=== PATIENT | male | born 1970 | race Caucasian/White ===

== ENCOUNTER 2017-06-17 21:20 | Inpatient (IN) | payer MEDICARE, OTHER ==
[~2017-06-17] VITALS: Ht 165.1 cm; Wt 57.7 kg
[~2017-06-17 21:20] MED LIST: MIRT7.5T10 PO; WELL150T PO
[2017-06-17 21:23] VITALS: BP 118/70; PULSE 99; RESP 16; TEMP 98.3; O2SAT 95
[2017-06-17 22:31] LABS: AUTOMATED NEUTROPHIL # 1.9 TH/MM3 (1.8-7.7); EOSINOPHIL # 0.2 TH/MM3 (0-0.4); EOSINOPHIL % 3.2 % (0.0-4.0); HEMATOCRIT 47.1 % (39.0-51.0); HEMOGLOBIN 16.7 GM/DL (13.0-17.0); LYMPH % 43.4 % (9.0-44.0); LYMPHOCYTE # 2.7 TH/MM3 (1.0-4.8); MEAN CELL VOLUME 91.4 FL (80.0-100.0); MEAN CORPUSCULAR HEMOGLOBIN 32.4 PG (27.0-34.0); MEAN CORPUSCULAR HGB CONC 35.5 % (32.0-36.0); MEAN PLATELET VOLUME 9.4 FL (7.0-11.0); MONO % 23.2 % (0.0-8.0); MONOCYTE # 1.4 TH/MM3 (0-0.9); NEUT % 30.2 % (16.0-70.0); PLATELET COUNT 209 TH/MM3 (150-450); RED BLOOD COUNT 5.15 MIL/MM3 (4.50-5.90); RED CELL DISTRIBUTION WIDTH 13.9 % (11.6-17.2); WHITE BLOOD COUNT 6.2 TH/MM3 (4.0-11.0)
[2017-06-17 22:47] LABS: ALBUMIN 3.7 GM/DL (3.4-5.0); ALT (GPT) 60 U/L (12-78); AST (GOT) 60 U/L (15-37); BICARBONATE 29.8 MEQ/L (21.0-32.0); BLOOD UREA NITROGEN 10 MG/DL (7-18); CALCIUM 8.5 MG/DL (8.5-10.1); CHLORIDE 97 MEQ/L (98-107); CREATININE 0.82 MG/DL (0.60-1.30); GLOMERULAR FILTRATION RATE 100 ML/MIN (>89); GLUCOSE,RANDOM 91 MG/DL (74-106); SODIUM (NA) 137 MEQ/L (136-145)
[2017-06-17 22:56] LABS: ALKALINE PHOSPHATASE 88 U/L (45-117); TOTAL BILIRUBIN ADULT 0.3 MG/DL (0.2-1.0); TOTAL PROTEIN 8.8 GM/DL (6.4-8.2)
[2017-06-17 22:58] LABS: BASOPHILS 1 % (0-2); MONOCYTES 15 % (0-8); NEUTROPHIL # MANUAL DIFF 2.7 TH/MM3 (1.8-7.7); POLYS (SEG NEUTROPHILS) 44 % (16-70)
[2017-06-17 22:59] LABS: LYMPHOCYTES 36 % (9-44)
[2017-06-17 23:01] LABS: TOXIC VACUOLATION PRESENT (NONE SEEN)
[2017-06-18] MEDS ORDERED: BUPR150XL PO (00:50)
[2017-06-18] MEDS ORDERED: POTASSIUM CHLORIDE 20 MEQ CONTROLLED RELEASE TAB PO ONE (01:00)
--- NOTE | 2017-06-18 01:01 | PD ---
HPI Chief Complaint: Psychiatric Symptoms Time Seen by Provider: 00:50 Travel History International Travel<30 days: No Contact w/Intl Traveler<30days: No Traveled to known affect area: No History of Present Illness HPI 46-year-old white male presents emergency Department on a voluntary basis for psychological evaluation. Patient has a history of bipolar, and anxiety. He states that he's been disabled for some time. He had moved from [place] to [place] a few years ago. He is followed by [facility]. He alleges that he stopped paying his heart be of his Medicare has not been able to afford his medications. He has been out of his medications for several months. He is becoming increasingly depressed and having suicidal thoughts. He states that he has contemplated having himself. Patient does admit to drinking alcohol. He denies any other drugs. He denies any medical complaints otherwise. No homicidal ideation. No toxic ingestion. PFSH Past Medical History ADHD: Yes Asthma: No Blood Disorders: No Bipolar Disorder: Yes Anxiety: Yes Depression: Yes Heart Rhythm Problems: No Cancer: No Cardiovascular Problems: No High Cholesterol: No Chemotherapy: No Chest Pain: No Congestive Heart Failure: No COPD: No Diabetes: No Diminished Hearing: No Endocrine: No Genitourinary: No Hepatitis: Yes Hypertension: Yes Immune Disorder: No Inguinal Hernia: Yes (HAD REPAIR OF BILATERAL INGUINAL HERNIAS) Insomnia: Yes Musculoskeletal: Yes (SCIATICA, CHRONIC BACK PAIN) Neurologic: No Psychiatric: Yes Reproductive: No Respiratory: No Integumentary: Yes (HAS AN ABSCESS LEFT WRIST, RED, SWOLLEN, HARD, NO DRAINAGE) Migraines: Yes Radiation Therapy: No Seizures: No Sleep Apnea: No Tetanus Vaccination: < 5 Years Influenza Vaccination: No Past Surgical History Abdominal Surgery: Yes (INGUINAL HERNIA REPAIR BILAT) Social History Alcohol Use: Yes Tobacco Use: Yes (1/2 PPD) Substance Use: No (DENIES) Allergies-Medications (Allergen,Severity, Reaction): Coded Allergies: haloperidol (Unverified Adverse Reaction, Severe, Shortness of Breath, ) Reported Meds & Prescriptions Reported Meds & Active Scripts Active Reported Wellbutrin Xl 24 HR (Bupropion HCl) 150 Mg Tab 150 Mg PO DAILY Review of Systems Except as stated in HPI: all other systems reviewed are Neg Psychiatric: Positive: Anxiety, Depression, Suicidal Ideations, Mood Disorder, No: Disorder of Thought, Substance Abuse, Homicidal Ideation Physical Exam Narrative GENERAL: Well-nourished, well-developed patient. Smells of EtOH. SKIN: Warm and dry. HEAD: Normocephalic and atraumatic. EYES: No scleral icterus. No injection or drainage. ENT: No nasal drainage noted. Mucous membranes pink. Airway patent. NECK: Supple, trachea midline. Moves head freely without obvious discomfort. CARDIOVASCULAR: Regular rate and rhythm without murmurs, gallops, or rubs. RESPIRATORY: Breath sounds equal bilaterally. No accessory muscle use. GASTROINTESTINAL: Abdomen soft, non-tender, nondistended. EXTREMITIES: No cyanosis or edema. BACK: Nontender without obvious deformity. No CVA tenderness. NEURO: Patient is alert and oriented. no sensorimotor deficits. Nonfocal. Normal speech. PSYCH: No delusions. No auditory or visual hallucinations. Data Data Last Documented VS Vital Signs Date Time Temp Pulse Resp B/P (MAP) Pulse Ox O2 Delivery O2 Flow Rate FiO2 06/18/17 00:50 18 06/17/17 21:23 98.3 99 118/70 (86) 95 Orders Orders Complete Blood Count With Diff (06/17/17 21:26) Comprehensive Metabolic Panel (06/17/17 21:26) Thyroid Stimulating Hormone (06/17/17 21:26) Psych Screen (06/17/17 21:26) Drug Screen, Random Urine (06/17/17 21:26) Alcohol (Ethanol) (06/17/17 21:26) Potassium Chloride (Kcl) (06/18/17 01:00) Labs Laboratory Tests Test 06/17/17 22:00 White Blood Count 6.2 TH/MM3 Red Blood Count 5.15 MIL/MM3 Hemoglobin 16.7 GM/DL Hematocrit 47.1 % Mean Corpuscular Volume 91.4 FL Mean Corpuscular Hemoglobin 32.4 PG Mean Corpuscular Hemoglobin Concent 35.5 % Red Cell Distribution Width 13.9 % Platelet Count 209 TH/MM3 Mean Platelet Volume 9.4 FL Neutrophils (%) (Auto) 30.2 % Lymphocytes (%) (Auto) 43.4 % Monocytes (%) (Auto) 23.2 % Eosinophils (%) (Auto) 3.2 % Basophils (%) (Auto) 0.0 % Neutrophils # (Auto) 1.9 TH/MM3 Lymphocytes # (Auto) 2.7 TH/MM3 Monocytes # (Auto) 1.4 TH/MM3 Eosinophils # (Auto) 0.2 TH/MM3 Basophils # (Auto) 0.0 TH/MM3 CBC Comment AUTO DIFF Differential Total Cells Counted 100 Neutrophils % (Manual) 44 % Lymphocytes % 36 % Monocytes % 15 % Eosinophils % 4 % Basophils % 1 % Neutrophils # (Manual) 2.7 TH/MM3 Differential Comment FINAL DIFF MANUAL Atypical Lymphocytes % Toxic Vacuolation PRESENT Platelet Estimate NORMAL Platelet Morphology Comment NORMAL Red Cell Morphology Comment NORMAL Blood Urea Nitrogen 10 MG/DL Creatinine 0.82 MG/DL Random Glucose 91 MG/DL Total Protein 8.8 GM/DL Albumin 3.7 GM/DL Calcium Level 8.5 MG/DL Alkaline Phosphatase 88 U/L Aspartate Amino Transf (AST/SGOT) 60 U/L Alanine Aminotransferase (ALT/SGPT) 60 U/L Total Bilirubin 0.3 MG/DL Sodium Level 137 MEQ/L Potassium Level 3.2 MEQ/L Chloride Level 97 MEQ/L Carbon Dioxide Level 29.8 MEQ/L Anion Gap 10 MEQ/L Estimat Glomerular Filtration Rate 100 ML/MIN Thyroid Stimulating Hormone 3rd Gen 0.499 uIU/ML Urine Opiates Screen NEG Urine Barbiturates Screen NEG Urine Amphetamines Screen NEG Urine Benzodiazepines Screen NEG Urine Cocaine Screen NEG Urine Cannabinoids Screen NEG Ethyl Alcohol Level 160 MG/DL MDM Medical Decision Making Medical Screen Exam Complete: Yes Emergency Medical Condition: Yes Medical Record Reviewed: Yes Interpretation(s) Laboratory Tests Test 06/17/17 22:00 White Blood Count 6.2 TH/MM3 Red Blood Count 5.15 MIL/MM3 Hemoglobin 16.7 GM/DL Hematocrit 47.1 % Mean Corpuscular Volume 91.4 FL Mean Corpuscular Hemoglobin 32.4 PG Mean Corpuscular Hemoglobin Concent 35.5 % Red Cell Distribution Width 13.9 % Platelet Count 209 TH/MM3 Mean Platelet Volume 9.4 FL Neutrophils (%) (Auto) 30.2 % Lymphocytes (%) (Auto) 43.4 % Monocytes (%) (Auto) 23.2 % Eosinophils (%) (Auto) 3.2 % Basophils (%) (Auto) 0.0 % Neutrophils # (Auto) 1.9 TH/MM3 Lymphocytes # (Auto) 2.7 TH/MM3 Monocytes # (Auto) 1.4 TH/MM3 Eosinophils # (Auto) 0.2 TH/MM3 Basophils # (Auto) 0.0 TH/MM3 CBC Comment AUTO DIFF Differential Total Cells Counted 100 Neutrophils % (Manual) 44 % Lymphocytes % 36 % Monocytes % 15 % Eosinophils % 4 % Basophils % 1 % Neutrophils # (Manual) 2.7 TH/MM3 Differential Comment FINAL DIFF MANUAL Atypical Lymphocytes % Toxic Vacuolation PRESENT Platelet Estimate NORMAL Platelet Morphology Comment NORMAL Red Cell Morphology Comment NORMAL Blood Urea Nitrogen 10 MG/DL Creatinine 0.82 MG/DL Random Glucose 91 MG/DL Total Protein 8.8 GM/DL Albumin 3.7 GM/DL Calcium Level 8.5 MG/DL Alkaline Phosphatase 88 U/L Aspartate Amino Transf (AST/SGOT) 60 U/L Alanine Aminotransferase (ALT/SGPT) 60 U/L Total Bilirubin 0.3 MG/DL Sodium Level 137 MEQ/L Potassium Level 3.2 MEQ/L Chloride Level 97 MEQ/L Carbon Dioxide Level 29.8 MEQ/L Anion Gap 10 MEQ/L Estimat Glomerular Filtration Rate 100 ML/MIN Thyroid Stimulating Hormone 3rd Gen 0.499 uIU/ML Urine Opiates Screen NEG Urine Barbiturates Screen NEG Urine Amphetamines Screen NEG Urine Benzodiazepines Screen NEG Urine Cocaine Screen NEG Urine Cannabinoids Screen NEG Ethyl Alcohol Level 160 MG/DL Differential Diagnosis MDM: High Differential diagnoses: Schizophrenia, schizoaffective disorder, bipolar, anxiety, depression, adjustment reaction, mood disorder NOS, ODD, depressive disorder NOS, dementia, dementia with agitation, psychosis NOS, substance induced mood disorder, DMDD, Asperger syndrome, infection,electrolyte abnormality, malingering. Narrative Course Mental health screening discussed with the patient. Psychiatric screen ordered. The patient is been medically cleared. This is medical clearance for psychiatric admission, alcohol intoxication Diagnosis Primary Impression: Medical clearance for psychiatric admission Additional Impression: Alcohol intoxication Qualified Codes: F10.920 - Alcohol use, unspecified with intoxication, uncomplicated Condition: Stable Braulio Magallon Jun 18, 2017 01:01
[2017-06-18] MEDS ORDERED: SERO25TA PO (02:16)
[2017-06-18] MEDS ORDERED: CLON0.2T PO (02:16)
[2017-06-18 06:30] VITALS: BP 120/58; PULSE 78; RESP 18; O2SAT 100
--- NOTE | 2017-06-18 13:34 | PD ---
History of Present Illness Chief Complaint: Major depressive disorder Time Seen by Provider: 13:10 Travel History International Travel<30 Days: No Contact w/Intl Traveler<30days: No Known affected area: No Legal Status Legal Status: Voluntary History of Present Illness: Mr. Guevara is a 46 y/o , single, male who presents voluntarily for depression and suicidal ideation. Patient endorses suicide by hanging and reports multiple previous attempts. He has been to this facility multiple times in the past. He has been off of his medications "for several months now" due to "losing my Medicare B'. He additionally reports that he hears command voices which are derogatory in nature, and "tell me to just get it over with". Reviewed the electronic medical record and discussed patient with medical staff. Interviewed patient in room in ED main. He is neatly groomed with multiple tattoos. He is alert & oriented X4. His speech is clear and his thoughts are organized. His mood is sad/anxious and congruent with his affect. He reports that he has been experiencing insomnia, anhedonia, and auditory command hallucinations "on and off, but more frequently the past few weeks" . He denies HI, visual hallucinations and does not appear to be delusional at this time. Patient admits to drinking alcohol, denies substance abuse, reports tobacco use 1 PPD. Mr Guevara's last visit to this facility was in 2013. He states that he moved back to [place], but returned in February due to his mother being having ESRD. He reports that his last suicide attempt by hanging resulted in a hospital stay in [place]. He states that he lives alone in an apartment, and is on SSI due to depression, bipolar disorder, and anxiety. He reports that he was taking Wellbutrin 150 mg bid, clonidine 2 mg TID, and Seroquel 25 mg HS. Denies having friends or family in the area, other than his mother. Mr Guevara had been receiving outpatient treatment through [facility]. He states that he was unaware that he could continue with them in spite of his loss of insurance. He will be admitted inpatient for medications stabilization. [facility] Past Medical History Narrative Medical Reviewed electronic record and labs. ADHD: Yes Asthma: No Blood Disorders: No Bipolar Disorder: Yes Anxiety: Yes Depression: Yes Heart Rhythm Problems: No Cancer: No Cardiovascular Problems: No High Cholesterol: No Chemotherapy: No Chest Pain: No Congestive Heart Failure: No COPD: No Diabetes: No Diminished Hearing: No Endocrine: No Genitourinary: No Hepatitis: Yes Hypertension: Yes Immune Disorder: No Inguinal Hernia: Yes (HAD REPAIR OF BILATERAL INGUINAL HERNIAS) Insomnia: Yes Musculoskeletal: Yes (SCIATICA, CHRONIC BACK PAIN) Neurologic: No Psychiatric: Yes Reproductive: No Respiratory: No Integumentary: Yes (HAS AN ABSCESS LEFT WRIST, RED, SWOLLEN, HARD, NO DRAINAGE) Migraines: Yes Radiation Therapy: No Seizures: No Sleep Apnea: No Tetanus Vaccination: < 5 Years Influenza Vaccination: No Past Surgical History Abdominal Surgery: Yes (INGUINAL HERNIA REPAIR BILAT) Psychiatric History Psychiatric History Reported previous history of suicide attempts. History of depression, anxiety, bipolar DO, and polysubstance abuse. Hx Psychiatric Treatment: HX OF MAJOR DEPRESSION, ANXIETY, PTSD AND POLYSUBSTANCE ABUSE History of Inpatient Treatment: Yes Guns or firearms in home: No Social History Reportedly lives alone in an apartment. Hx Alcohol Use: Yes Hx Tobacco Use: Yes (/2 PPD) Hx Substance Use: Yes (HX: ALCOHOL ) Substance Use Type: Alcohol, Nicotine/Cigarettes, Cocaine Hx of Substance Use Treatment: No Family Psychiatric History Denies family history of suicide or mental illness. Allergies-Medications (Allergen,Severity, Reaction): Coded Allergies: haloperidol (Unverified Adverse Reaction, Severe, Shortness of Breath, ) Reported Meds & Prescriptions Reported Meds & Active Scripts Active Reported Clonidine (Clonidine HCl) 0.2 Mg Tab 0.2 Mg PO TID Seroquel (Quetiapine Fumarate) 25 Mg Tab 25 Mg PO HS Wellbutrin Xl 24 HR (Bupropion HCl) 150 Mg Tab 150 Mg PO DAILY Narrative Medication Reportedly was taking Wellbutrin 150 mg bid, Clonidine 2 mg TID, and Seroquel 25 mg HS. Review of Systems Other Medically cleared by ED staff. Mental Status Examination Appearance: Appropriate, Well dressed/well groomed Consciousness: Alert Orientation: x4 Motor Activity: Other (in bed) Speech: Unremarkable Language: Adequate Fund of Knowledge: Adequate Attention and Concentration: Adequate Memory: Unremarkable Mood: Sad, Anxious Affect: Sad, Anxious Thought Process & Associations: Intact Thought Content: Appropriate Hallucination Type: Auditory (reports derogotory, command auditory hallucinations) Delusion Type: None Suicidal Ideation: Yes Suicidal Plan: Yes (hanging) Suicidal Intention: No Homicidal Ideation: No Homicidal Plan: No Homicidal Intention: No Insight: Adequate Judgment: Impulsive (per patient's description) Mental Status Exam Remarks Reviewed the electronic medical record and discussed patient with medical staff. Interviewed patient in room in ED main. He is neatly groomed with multiple tattoos. He is alert & oriented X4. His speech is clear and his thoughts are organized. His mood is sad/anxious and congruent with his affect. He reports that he has been experiencing insomnia, anhedonia, and auditory command hallucinations "on and off, but more frequently the past few weeks" . He denies HI, visual hallucinations and does not appear to be delusional at this time. Patient admits to drinking alcohol, denies substance abuse, reports tobacco use 1 PPD. Mr Guevara's last visit to this facility was in 2013. He states that he moved back to [place], but returned in February due to his mother being having ESRD. He reports that his last suicide attempt by hanging resulted in a hospital stay in [place]. He states that he lives alone in an apartment, and is on SSI due to depression, bipolar disorder, and anxiety. [facility] Medical Decision Making Medical Record Reviewed: Yes Assessment/Plan Admission for medication stabilization. Request HC Surrog/Guard Advoc?: No Orders Orders Complete Blood Count With Diff (06/17/17 21:26) Comprehensive Metabolic Panel (06/17/17 21:26) Thyroid Stimulating Hormone (06/17/17 21:26) Psych Screen (06/17/17 21:26) Drug Screen, Random Urine (06/17/17 21:26) Alcohol (Ethanol) (06/17/17 21:26) Potassium Chloride (Kcl) (06/18/17 01:00) Diet Regular Basic (06/18/17 Breakfast) Results Vital Signs Date Time Temp Pulse Resp B/P (MAP) Pulse Ox O2 Delivery O2 Flow Rate FiO2 06/18/17 06:30 78 18 120/58 (78) 100 06/18/17 00:50 18 06/17/17 21:23 98.3 99 16 118/70 (86) 95 Laboratory Tests Test 06/17/17 22:00 White Blood Count 6.2 Red Blood Count 5.15 Hemoglobin 16.7 Hematocrit 47.1 Mean Corpuscular Volume 91.4 Mean Corpuscular Hemoglobin 32.4 Mean Corpuscular Hemoglobin Concent 35.5 Red Cell Distribution Width 13.9 Platelet Count 209 Mean Platelet Volume 9.4 Neutrophils (%) (Auto) 30.2 Lymphocytes (%) (Auto) 43.4 Monocytes (%) (Auto) 23.2 Eosinophils (%) (Auto) 3.2 Basophils (%) (Auto) 0.0 Neutrophils # (Auto) 1.9 Lymphocytes # (Auto) 2.7 Monocytes # (Auto) 1.4 Eosinophils # (Auto) 0.2 Basophils # (Auto) 0.0 CBC Comment AUTO DIFF Differential Total Cells Counted 100 Neutrophils % (Manual) 44 Lymphocytes % 36 Monocytes % 15 Eosinophils % 4 Basophils % 1 Neutrophils # (Manual) 2.7 Differential Comment FINAL DIFF MANUAL Atypical Lymphocytes Toxic Vacuolation PRESENT Platelet Estimate NORMAL Platelet Morphology Comment NORMAL Red Cell Morphology Comment NORMAL Blood Urea Nitrogen 10 Creatinine 0.82 Random Glucose 91 Total Protein 8.8 Albumin 3.7 Calcium Level 8.5 Alkaline Phosphatase 88 Aspartate Amino Transf (AST/SGOT) 60 Alanine Aminotransferase (ALT/SGPT) 60 Total Bilirubin 0.3 Sodium Level 137 Potassium Level 3.2 Chloride Level 97 Carbon Dioxide Level 29.8 Anion Gap 10 Estimat Glomerular Filtration Rate 100 Thyroid Stimulating Hormone 3rd Gen 0.499 Urine Opiates Screen NEG Urine Barbiturates Screen NEG Urine Amphetamines Screen NEG Urine Benzodiazepines Screen NEG Urine Cocaine Screen NEG Urine Cannabinoids Screen NEG Ethyl Alcohol Level 160 Diagnosis Primary Impression: Major depressive disorder Admitting Information Admitting Physician Requests: Admit Condition: Stable Shilpa Humphrey Jun 18, 2017 13:34
[2017-06-18] MEDS ORDERED: ALUMINUM/MAGNESIUM/SIMETH 30 ML CUP PO PRN (14:15)
[2017-06-18] MEDS ORDERED: MAGNESIUM HYDROXIDE SUSP 30 ML CUP PO PRN (14:15)
[2017-06-18 15:35] VITALS: BP_SYST 127; BP_SYST 136; BP_DIAS 65; BP_DIAS 70; PULSE 78; PULSE 87; RESP 16; RESP 17; TEMP 97.6; O2SAT 98
[2017-06-18 15:43] VITALS: BP 127/70
[2017-06-18] MEDS ORDERED: LORazepam 2 MG TAB PO PRN (16:45)
[2017-06-18] MEDS ORDERED: FLUMAZENIL 0.5 MG/5 ML VIAL IV PUSH PRN (16:45)
[2017-06-18] MEDS ORDERED: LORazepam 2 MG/ML VIAL IV PUSH PRN ×4 (16:45)
[2017-06-18 18:00] VITALS: BP 136/65; PULSE 78; RESP 16; TEMP 97.6; O2SAT 98
[2017-06-18] MEDS: NICOTINE 21 MG/24 HR PATCH T-DERMAL SCH (20:49)
[2017-06-19 06:06] VITALS: BP 99/54; PULSE 69; RESP 19; TEMP 97.5; O2SAT 99
[2017-06-19 08:26] LABS: BICARBONATE 32.4 MEQ/L (21.0-32.0); BLOOD UREA NITROGEN 13 MG/DL (7-18); CALCIUM 9.2 MG/DL (8.5-10.1); CHLORIDE 105 MEQ/L (98-107); CHOLESTEROL 164 MG/DL (120-200); GLOMERULAR FILTRATION RATE 103 ML/MIN (>89); GLUCOSE,RANDOM 92 MG/DL (74-106); SODIUM (NA) 142 MEQ/L (136-145)
[2017-06-19 08:29] LABS: CHOLESTEROL/ HDL RATIO 3.52 RATIO; HDL CHOLESTEROL 46.5 MG/DL (40.0-60.0); LDL CHOLESTEROL 104 MG/DL (0-99); TRIGLYCERIDES 68 MG/DL (42-150)
[2017-06-19] MEDS: NICOTINE 21 MG/24 HR PATCH T-DERMAL SCH (08:53)
[2017-06-19] MEDS: LORazepam 1 MG TAB PO PRN ×2 (08:53→16:02)
[2017-06-19] MEDS ORDERED: REMOVE OLD PATCH T-DERMAL SCH (09:00)
--- NOTE | 2017-06-19 11:16 | PD.PN.STU ---
Subjective Remarks This is a 46 y/o male being evaluated on the inpatient psych unit for the chief complaint of "I need my meds" The patient has a 20 year hx of major depression and sever anxiety. He has been on his current medication regimen for the past 6-7 years but lost his insurance in March and has not has his medication since then. He says that he started to feel suicidal when he ran out of his meds. He reports having panic attacks when he leaves the house and reports that he would try to kill himself by hanging himself. The patient states "If I could I would be so happy". He reports that he was living with his brother and his brother girlfriend in [facility] and both of them are active drug abusers. He moved here from [place] to be with his alcoholic mother while she deals with her stage 3 CKD. The patient reports "over 100 suicide attempts" . He has a hx of alcohol abuse and was sober for 4 years but began drinking 3 days ago because oh how depressed he felt. His BAL was 160 in the ED and his urine tox was negative. The patient admits to hearing voices all of the time and that they "tell me to just do it already and kill myself". He denies visual hallucinations. The patient reports poor sleep, low energy, diminished appetite , and fatigue. The patient reports that he lives off of SSDI because his mental health is so debilitating. The patient reports that upon discharge he has no idea where he would go. PMH- ADHD, MDD Surgical hx- 2 inguinal hernia repairs Social- hx of alcohol abuse but drank a 12 pack 3 days ago, smokes tobacco 1PPD Objective Vitals Vital Signs Date Time Temp Pulse Resp B/P (MAP) Pulse Ox O2 Delivery O2 Flow Rate FiO2 06/19/17 06:06 97.5 69 19 99/54 (69) 99 06/18/17 18:00 97.6 78 16 136/65 (88) 98 06/18/17 15:43 83 17 127/70 (89) 98 06/18/17 15:35 97.6 78 16 136/65 (88) 98 06/18/17 15:35 87 17 127/70 (89) 98 Room Air Result Diagram: 06/17/17 2200 06/19/17 0726 Objective Remarks Appearance: Appropriate, Well dressed/well groomed, multiple tattoos over his arms Consciousness: Alert Orientation: x4 Motor Activity: Anxious Speech: Unremarkable Language: Adequate Fund of Knowledge: Adequate Attention and Concentration: Adequate Memory: Unremarkable Mood: Sad, Anxious Affect: Sad, Anxious Thought Process & Associations: Intact Thought Content: Appropriate Hallucination Type: Auditory (reports command auditory hallucinations) Delusion Type: None Suicidal Ideation: Yes Suicidal Plan: Yes (hanging himself) Suicidal Intention: No Homicidal Ideation: No Homicidal Plan: No Homicidal Intention: No Insight: Adequate Judgment: Impulsive Medications and IVs Home Medications Wellbutrin- 150mg PO daily Clonidine- 0.2mg TID Seroquel- 25mg PO at bedtime Current Medications Potassium Chloride (KCl) 40 meq ONCE ONCE PO Last administered on 06/18/17at 03 :30; Start 06/18/17 at 01:00; Stop 06/18/17 at 01:01; Status DC Acetaminophen (Tylenol) 650 mg Q4H PRN PO Pain 1-5 or Temp >101F; Start at 14:15 Magnesium Hydroxide (Milk Of Magnesia Liq) 30 ml DAILY PRN PO CONSTIPATION; Start 06/18/17 at 14:15 Al Hydrox/Mg Hydrox/Simethicone (Mag-Al Plus Susp Liq) 30 ml Q6H PRN PO DYSPEPSIA; Start 06/18/17 at 14:15 Nicotine (Habitrol 21 Mg Patch.24 Hr) 1 patch DAILY T-DERMAL ; Start 06/18/17 at 21:00 Miscellaneous Information 1 DAILY T-DERMAL ; Start 06/19/17 at 09:00 Flumazenil (Romazicon Inj) 0.2 mg Q1M PRN IV PUSH SEE LABEL COMMENTS; Start at 16:45 Lorazepam (Ativan) 1 mg Q4H PRN PO CIWA 8 - 10 Last administered on 06/19/17at 08:53; Start 06/18/17 at 16:45 Lorazepam (Ativan Inj) 1 mg Q4H PRN IV PUSH CIWA 8 - 10; Start 06/18/17 at 16: 45 Lorazepam (Ativan) 2 mg Q2H PRN PO CIWA 11-14 Last administered on 06/18/17at 18 :43; Start 06/18/17 at 16:45 Lorazepam (Ativan Inj) 2 mg Q2H PRN IV PUSH CIWA 11-14; Start 06/18/17 at 16:45 Lorazepam (Ativan Inj) 2 mg Q1H PRN IV PUSH CIWA 15-20; Start 06/18/17 at 16:45 Lorazepam (Ativan Inj) 2 mg Q15M PRN IV PUSH CIWA > 20; Start 06/18/17 at 16:45 A/P Assessment and Plan 1. Acute on Chronic Major Depressive Disorder -Patient has not had his medications in about 3 months, he is acutely suicidal and depressed -Continue his Wellbutrin 150mg PO daily -Continue Seroquel 25mg orally at bedtime -continue Clonidine .2mg tid Discharge Planning Patient has no plans for when he is discharged. He has no money saved up and is awaiting his next SS check. Adan Peters M3 Jun 19, 2017 11:16
[2017-06-19] MEDS ORDERED: buPROPion HCL 150 MG SUSTAINED RELEASE TAB PO SCH (12:00)
[2017-06-19] MEDS ORDERED: diphenhydrAMINE HCL 50 MG CAP PO PRN (12:30)
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
[2017-06-19] MEDS: buPROPion HCL 150 MG SUSTAINED RELEASE TAB PO SCH ×2 (12:52→14:20)
[2017-06-19] MEDS: cloNIDine HCL 0.2 MG TAB PO SCH ×2 (13:00→17:24)
[2017-06-19] MEDS: hydrOXYzine HCL 50 MG TAB PO PRN (13:03)
[2017-06-19 16:39] LABS: HEMOGLOBIN A1C 4.6 % (4.3-6.0)
[2017-06-19 18:33] VITALS: BP 127/72; PULSE 80; RESP 16; TEMP 97.2; O2SAT 100
--- NOTE | 2017-06-19 19:47 | EKG ---
Date Performed: 06/19/2017 Time Performed: 08:51:29 PTAGE: 46 years EKG: Sinus rhythm EARLY REPOLARIZATION BORDERLINE ECG PREVIOUS TRACING : 07/24/2013 17.50 Since the prior tracing, there has been no significant shaw DOCTOR: Sanaz Huynh Interpretating Date/Time 06/19/2017 19:46:43
[2017-06-19] MEDS ORDERED: QUEtiapine FUMARATE 25 MG TAB PO SCH (21:00)
[2017-06-20 06:05] VITALS: BP 95/58; PULSE 58; RESP 17; TEMP 97.4; O2SAT 97
[2017-06-20] MEDS: buPROPion HCL 150 MG SUSTAINED RELEASE TAB PO SCH ×2 (08:22→12:11)
[2017-06-20] MEDS: cloNIDine HCL 0.2 MG TAB PO SCH ×3 (08:23→17:19)
[2017-06-20] MEDS: hydrOXYzine HCL 50 MG TAB PO PRN (09:06)
[2017-06-20] MEDS: LORazepam 1 MG TAB PO PRN ×2 (09:59→20:29)
[2017-06-20 12:04] VITALS: BP 120/80; PULSE 90
[2017-06-20 13:15] VITALS: BP 106/72; PULSE 96
--- NOTE | 2017-06-20 15:11 | HHI.PYPN ---
Subjective Remarks Patient seen in his room with nurse Radha medical student Adan, chart reviewed, patient discussed with nurse. She is sitting in chair the somewhat demanding and entitled attitude. Complains of insomnia with's increased anxiety and somewhat command auditory hallucinations. Telling me his various prior medication regimens including when necessary Wellbutrin if not taken before 4 PM and when necessary clonidine. Upon review of the med reconciliation the clonidine scheduled only the Wellbutrin was scheduled at 150 mg daily though he told the staff he was on 150 mg twice a day. He also states she was taking Seroquel frequently though the med reconciliation is bedtime only. For now we' ll continue the Wellbutrin and the clonidine no change will increase the Seroquel to 25 mg 8 AM noon and 4 PM and at 100 mg of Seroquel at at bedtime. It appears counselors attempting to arrange transportation for him to return to [place] Review of Systems Except as stated in HPI: all other systems reviewed are Neg Mental Status Examination Appearance: Appropriate, Well dressed/well groomed Consciousness: Alert Orientation: x4 Motor Activity: Other (in bed) Speech: Unremarkable Language: Adequate Fund of Knowledge: Adequate Attention and Concentration: Adequate Memory: Unremarkable Mood: Sad, Anxious Affect: Other (slight increased range and intensity) Thought Process & Associations: Intact Thought Content: Appropriate Hallucination Type: Auditory (reports derogotory, command auditory hallucinations) Delusion Type: None Suicidal Ideation: Yes Suicidal Plan: Yes (hanging) Suicidal Intention: No Homicidal Ideation: No Homicidal Plan: No Homicidal Intention: No Insight: Adequate Judgment: Impulsive (per patient's description) Results Vitals/IOs Vital Signs Date Time Temp Pulse Resp B/P (MAP) Pulse Ox O2 Delivery O2 Flow Rate FiO2 06/20/17 13:15 96 106/72 (83) 06/20/17 06:05 97.4 17 97 06/18/17 15:35 Room Air Assessment & Plan Problem List: (1) Alcohol abuse with intoxication ICD Codes: F10.129 - Alcohol abuse with intoxication Status: Acute (2) Major depressive disorder ICD Codes: F32.9 - Major depressive disorder, single episode, unspecified Status: Acute Assessment & Plan Estimated LOS: days patient continues somewhat depressed anxious claiming auditory hallucinations and suicidality. Though his minimizing the role of his alcohol use and past substance use may play in the symptoms. I did emphasize the need for understanding and patient's with him getting better. She medication adjustment above Justification for Cont. Inpt. At this time patient decompensated placed in the lower level of care Discharge Planning Possible assistance with transportation to [place] Request HC Surrog/Guard Advoc?: No Problem Qualifiers (1) Major depressive disorder: Qualified Codes: F33.3 - Major depressive disorder, recurrent, severe with psychotic symptoms Cornelius Potter MD Jun 20, 2017 15:10
[2017-06-20] MEDS: QUEtiapine FUMARATE 25 MG TAB PO SCH (17:19)
[2017-06-20 17:21] VITALS: BP 120/84; PULSE 70
[2017-06-20] MEDS: QUEtiapine FUMARATE 100 MG TAB PO SCH (20:29)
[2017-06-21 05:31] VITALS: BP 117/63; PULSE 59; RESP 16; TEMP 97.3; O2SAT 97
[2017-06-21] MEDS: cloNIDine HCL 0.2 MG TAB PO SCH ×3 (07:26→17:00)
[2017-06-21] MEDS: QUEtiapine FUMARATE 25 MG TAB PO SCH ×3 (08:12→16:00)
[2017-06-21] MEDS: buPROPion HCL 150 MG SUSTAINED RELEASE TAB PO SCH ×2 (08:12→11:51)
[2017-06-21] MEDS: ACETAMINOPHEN 325 MG TAB PO PRN (08:12)
[2017-06-21] MEDS: LORazepam 1 MG TAB PO PRN ×2 (09:55→17:00)
[2017-06-21 11:07] VITALS: BP 139/86; PULSE 64
--- NOTE | 2017-06-21 13:04 | HHI.PYPN ---
Subjective Remarks Pt seen and discussed with staff. He is on CIWA protocol and received ativan X1. He has been irritable and easily frustrated today. He c/o of intermittent AH but have decreased some with seroquel. No SI/HI He c/o of seasonal allergy symptoms Mental Status Examination Appearance: Appropriate, Well dressed/well groomed Consciousness: Alert Orientation: x4 Motor Activity: Other (in bed) Speech: Unremarkable Language: Adequate Fund of Knowledge: Adequate Attention and Concentration: Adequate Memory: Unremarkable Mood: Irritable Affect: Irritable, Other (slight increased range and intensity) Thought Process & Associations: Intact Thought Content: Appropriate Hallucination Type: Auditory (reports derogotory, command auditory hallucinations) Delusion Type: None Suicidal Ideation: No Suicidal Plan: No (hanging) Suicidal Intention: No Homicidal Ideation: No Homicidal Plan: No Homicidal Intention: No Insight: Adequate Judgment: Impulsive (per patient's description) Results Vitals/IOs Vital Signs Date Time Temp Pulse Resp B/P (MAP) Pulse Ox O2 Delivery O2 Flow Rate FiO2 06/21/17 11:07 64 139/86 (103) 06/21/17 05:31 97.3 16 97 06/18/17 15:35 Room Air Assessment & Plan Problem List: (1) Alcohol abuse with intoxication ICD Codes: F10.129 - Alcohol abuse with intoxication Status: Acute (2) Major depressive disorder ICD Codes: F32.9 - Major depressive disorder, single episode, unspecified Status: Acute Assessment & Plan Continue current tx plan. Estimated LOS: days Justification for Cont. Inpt. impairments in reality testing Request HC Surrog/Guard Advoc?: No Problem Qualifiers (1) Major depressive disorder: Qualified Codes: F33.3 - Major depressive disorder, recurrent, severe with psychotic symptoms Vika Turner MD Jun 21, 2017 13:04
[2017-06-21] MEDS: hydrOXYzine HCL 50 MG TAB PO PRN ×2 (14:31→20:53)
[2017-06-21 18:17] VITALS: BP 140/78; PULSE 67; RESP 18; TEMP 97.7; O2SAT 99
[2017-06-21] MEDS: QUEtiapine FUMARATE 100 MG TAB PO SCH (20:52)
[2017-06-22 05:29] VITALS: BP 123/67; PULSE 61; RESP 18; TEMP 97.6; O2SAT 97
[2017-06-22] MEDS: cloNIDine HCL 0.2 MG TAB PO SCH ×3 (08:38→18:05)
[2017-06-22] MEDS: LORATADINE 10 MG TAB PO SCH (08:38)
[2017-06-22] MEDS: QUEtiapine FUMARATE 25 MG TAB PO SCH ×3 (08:38→18:05)
[2017-06-22] MEDS: buPROPion HCL 150 MG SUSTAINED RELEASE TAB PO SCH ×2 (08:39→12:39)
[2017-06-22] MEDS: hydrOXYzine HCL 50 MG TAB PO PRN ×2 (10:13→18:05)
--- NOTE | 2017-06-22 16:58 | HHI.PYPN ---
Subjective Remarks Pt seen and discussed with staff. He reported that depression and ruminating thoughts continue but he no longer wants to kill himself. He reports AH have decreased some. He is compliant with medications and denies side effects. Mental Status Examination Appearance: Appropriate, Well dressed/well groomed Consciousness: Alert Orientation: x4 Motor Activity: Other (in bed) Speech: Unremarkable Language: Adequate Fund of Knowledge: Adequate Attention and Concentration: Adequate Memory: Unremarkable Mood: Irritable Affect: Irritable, Other (slight increased range and intensity) Thought Process & Associations: Intact Thought Content: Appropriate Hallucination Type: Auditory (decreased) Delusion Type: None Suicidal Ideation: No Suicidal Plan: No Suicidal Intention: No Homicidal Ideation: No Homicidal Plan: No Homicidal Intention: No Insight: Fair Judgment: Impulsive Results Vitals/IOs Vital Signs Date Time Temp Pulse Resp B/P (MAP) Pulse Ox O2 Delivery O2 Flow Rate FiO2 06/22/17 05:29 97.6 61 18 123/67 (85) 97 06/18/17 15:35 Room Air Assessment & Plan Problem List: (1) Alcohol abuse with intoxication ICD Codes: F10.129 - Alcohol abuse with intoxication Status: Acute (2) Major depressive disorder ICD Codes: F32.9 - Major depressive disorder, single episode, unspecified Status: Acute Assessment & Plan Continue current tx plan. Estimated LOS: days Justification for Cont. Inpt. monitoring for safety Request HC Surrog/Guard Advoc?: No Problem Qualifiers (1) Major depressive disorder: Qualified Codes: F33.3 - Major depressive disorder, recurrent, severe with psychotic symptoms Vika Turner MD Jun 22, 2017 16:58
[2017-06-22 17:06] VITALS: BP_SYST 116; PULSE 57; RESP 17; TEMP 97.5; O2SAT 69
[2017-06-22] MEDS: QUEtiapine FUMARATE 100 MG TAB PO SCH (21:00)
[2017-06-23 05:51] VITALS: BP 117/65; PULSE 64; RESP 18; TEMP 97.4
[2017-06-23] MEDS: QUEtiapine FUMARATE 25 MG TAB PO SCH ×3 (08:10→16:00)
[2017-06-23] MEDS: cloNIDine HCL 0.2 MG TAB PO SCH ×3 (08:11→16:45)
[2017-06-23] MEDS: LORATADINE 10 MG TAB PO SCH (08:11)
[2017-06-23] MEDS: buPROPion HCL 150 MG SUSTAINED RELEASE TAB PO SCH ×2 (08:11→11:30)
[2017-06-23] MEDS: hydrOXYzine HCL 50 MG TAB PO PRN (09:26)
--- NOTE | 2017-06-23 10:51 | PD.TTN ---
Patient Problems 1. Discharge planning 2. Medication compliance 3. Knowledge deficit 4. Lack of coping skills Progress Toward Goals Provider Present: Dr. Franko Potter Provider Input: 06/23/17 - Patient remains medication compliant and continues to report ongoing auditory hallucinations. Psychiatric Counselors Present: GERMAN Whitney Psych Therapist Input: 06/23/17 - Patient reports tht he does not want to return to his brother's home. Counselor informed the patient that the hospital will not pay for his bus ticket to [place]. Counselor informed the patient that [facility] and request a bus ticket to be paid for from their reunification funds. Patient has poor attitude and appears entitled. Group Spec/RT/OT/KAPADIA Present: KANG Harris Group Spec/RT/OT/KAPADIA Input: 06/23/17 - Patient does not attend groups. Discharge Plan SMA 06/23/17 - Patient will be discharged to his brother's home when stable. Documentation Scribe: GERMAN Whitney Date Resolved: Jun 23, 2017 Liliam Rosen Jun 23, 2017 10:51
[2017-06-23 11:03] VITALS: BP 110/59; PULSE 54
--- NOTE | 2017-06-23 15:50 | HHI.PYPN ---
Subjective Remarks Patient seen in his room with nurse alan beverly, chart review, patient discussed with nurse. Patient today's focusing on his complaints of continued auditory hallucinations that are bad but not quite as better last week complaining of continued insomnia complaining of anxiety complaining of applying responding to go when he leaves here. Making more demands for medication especially wanting an additional 75 mg Wellbutrin at 5 PM that he states he had been on in the past as a when necessary that helped him through the night. Now continue to refrain from benzodiazepines. We will increase his Seroquel to 50 mg daytime dosing and 200 mg at bedtime. We will add the Wellbutrin at 5 PM. We'll discontinue the ciwa protocol. We did discuss placement issues it appears will not be able to furnish patient with a bus pass to [place]. He is reluctant to go back with his brother. However he did mention that he has a boyfriend in town that he has had a relationship for 5 years. He then stated he was hoping to delay moving in with him until they were in any event will do the medication adjustments as mentioned above continue to work with discharge Review of Systems Except as stated in HPI: all other systems reviewed are Neg Mental Status Examination Appearance: Appropriate, Well dressed/well groomed Consciousness: Alert Orientation: x4 Motor Activity: Other (in bed) Speech: Unremarkable Language: Adequate Fund of Knowledge: Adequate Attention and Concentration: Adequate Memory: Unremarkable Mood: Irritable Affect: Irritable, Other (slight increased range and intensity) Thought Process & Associations: Intact Thought Content: Appropriate Hallucination Type: Auditory (decreased) Delusion Type: None Suicidal Ideation: No Suicidal Plan: No Suicidal Intention: No Homicidal Ideation: No Homicidal Plan: No Homicidal Intention: No Insight: Fair Judgment: Impulsive Results Vitals/IOs Vital Signs Date Time Temp Pulse Resp B/P (MAP) Pulse Ox O2 Delivery O2 Flow Rate FiO2 06/23/17 11:03 54 110/59 (76) 06/23/17 05:51 97.4 18 06/22/17 17:06 69 Assessment & Plan Problem List: (1) Alcohol abuse with intoxication ICD Codes: F10.129 - Alcohol abuse with intoxication Status: Acute (2) Major depressive disorder ICD Codes: F32.9 - Major depressive disorder, single episode, unspecified Status: Acute Assessment & Plan Estimated LOS: days patient remained psychotic somewhat paranoid. Somewhat needy and at times somewhat manipulative. She medication adjustments above Justification for Cont. Inpt. At this time patient decompensated placed in the lower level of care Discharge Planning To be determined Request HC Surrog/Guard Advoc?: No Problem Qualifiers (1) Major depressive disorder: Qualified Codes: F33.3 - Major depressive disorder, recurrent, severe with psychotic symptoms Cornelius Potter MD Jun 23, 2017 15:50
[2017-06-23] MEDS: buPROPion HCL 75 MG TAB PO SCH (16:45)
[2017-06-23 18:23] VITALS: BP 109/55; PULSE 59; RESP 18; TEMP 97.4; O2SAT 100
[2017-06-23] MEDS: QUEtiapine FUMARATE 100 MG TAB PO SCH (20:59)
[2017-06-24 05:19] VITALS: BP 101/62; PULSE 59; RESP 18; TEMP 97.6; O2SAT 97
[2017-06-24] MEDS: LORATADINE 10 MG TAB PO SCH (08:09)
[2017-06-24] MEDS: hydrOXYzine HCL 50 MG TAB PO PRN ×2 (08:09→16:32)
[2017-06-24] MEDS: QUEtiapine FUMARATE 25 MG TAB PO SCH ×3 (08:09→16:31)
[2017-06-24] MEDS: buPROPion HCL 150 MG SUSTAINED RELEASE TAB PO SCH ×2 (08:09→12:26)
[2017-06-24] MEDS: cloNIDine HCL 0.2 MG TAB PO SCH ×3 (08:12→17:15)
[2017-06-24 12:36] VITALS: BP 117/59; PULSE 87; RESP 16; O2SAT 99
[2017-06-24] MEDS ORDERED: CLON0.2T PO (15:13)
[2017-06-24] MEDS ORDERED: SERO50TA PO (15:13)
[2017-06-24] MEDS ORDERED: SERO200T PO (15:13)
[2017-06-24] MEDS ORDERED: BUPR150CR PO (15:13)
--- NOTE | 2017-06-24 15:17 | HHI.PYPN ---
Subjective Remarks Patient seen today in [place] with nurse Hull, chart review, discussed with nurse. Patient showing some improved affect is somewhat excited about the fact that he now is able to get a bus ticket back to [place] through his PEG. They will be able to stay with his brother until the Friday comes through for his trip. We will also help by filling a 1 month supply of his medications. Thus patient will be discharged tomorrow with his Rx for follow-up of mental health services in [place] Review of Systems Except as stated in HPI: all other systems reviewed are Neg Mental Status Examination Appearance: Appropriate, Well dressed/well groomed Consciousness: Alert Orientation: x4 Motor Activity: Other (in bed) Speech: Unremarkable Language: Adequate Fund of Knowledge: Adequate Attention and Concentration: Adequate Memory: Unremarkable Mood: Irritable Affect: Irritable, Other (slight increased range and intensity) Thought Process & Associations: Intact Thought Content: Appropriate Hallucination Type: Auditory (decreased) Delusion Type: None Suicidal Ideation: No Suicidal Plan: No Suicidal Intention: No Homicidal Ideation: No Homicidal Plan: No Homicidal Intention: No Insight: Fair Judgment: Impulsive Results Vitals/IOs Vital Signs Date Time Temp Pulse Resp B/P (MAP) Pulse Ox O2 Delivery O2 Flow Rate FiO2 06/24/17 12:36 87 16 117/59 (78) 99 06/24/17 05:19 97.6 Assessment & Plan Problem List: (1) Alcohol abuse with intoxication ICD Codes: F10.129 - Alcohol abuse with intoxication Status: Acute (2) Major depressive disorder ICD Codes: F32.9 - Major depressive disorder, single episode, unspecified Status: Acute Assessment & Plan Estimated LOS: days probable discharge tomorrow with Rx 1 month to stay with brother to taking get bus ticket to [place] in a few days Justification for Cont. Inpt. At this time patient will decompensate the placed in a lower level of care Discharge Planning See above Request HC Surrog/Guard Advoc?: No Problem Qualifiers (1) Major depressive disorder: Qualified Codes: F33.3 - Major depressive disorder, recurrent, severe with psychotic symptoms Cornelius Potter MD Jun 24, 2017 15:17
[2017-06-24] MEDS: buPROPion HCL 75 MG TAB PO SCH (16:31)
[2017-06-24 17:14] VITALS: BP 135/74; PULSE 67; RESP 18; TEMP 98; O2SAT 97
[2017-06-24 18:36] VITALS: BP 135/74; PULSE 67; RESP 18; TEMP 98; O2SAT 97
[2017-06-24] MEDS: QUEtiapine FUMARATE 100 MG TAB PO SCH (21:04)
[2017-06-25 06:33] VITALS: BP 105/55; PULSE 69; RESP 17; TEMP 98.2; O2SAT 97
[2017-06-25] MEDS: LORATADINE 10 MG TAB PO SCH (08:20)
[2017-06-25] MEDS: buPROPion HCL 150 MG SUSTAINED RELEASE TAB PO SCH (08:20)
[2017-06-25] MEDS: ACETAMINOPHEN 325 MG TAB PO PRN (08:21)
[2017-06-25] MEDS: hydrOXYzine HCL 50 MG TAB PO PRN (08:25)
[2017-06-25] MEDS: QUEtiapine FUMARATE 25 MG TAB PO SCH (08:25)
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
== END 2017-06-25 11:35 | disposition home or self-care (01) | DRG 885 ==
LOC: NEPD 21:20 → NEDA 06-18 14:22 → H260 06-18 15:42
PROVIDERS: ADMIT Psychiatry & Neurology Psychiatry; ATTEND Psychiatry & Neurology Psychiatry
DX: F33.3 Major depressive disorder, recurrent, severe with psychotic symptoms (principal); R45.851 Suicidal ideations; L02.414 Cutaneous abscess of left upper limb; K75.9 Inflammatory liver disease, unspecified; I10 Essential (primary) hypertension; F10.129 Alcohol abuse with intoxication, unspecified; G47.00 Insomnia, unspecified; F41.0 Panic disorder [episodic paroxysmal anxiety]; F90.9 Attention-deficit hyperactivity disorder, unspecified type; M54.9 Dorsalgia, unspecified; G89.29 Other chronic pain; F17.210 Nicotine dependence, cigarettes, uncomplicated; Y90.6 Blood alcohol level of 120-199 mg/100 ml; F12.90 Cannabis use, unspecified, uncomplicated
CPT/HCPCS: 80048; 80053; 80061; 80307; 83036; 84443; 85007; 85027; 93005; Q0163